=== PATIENT | male | born 2000 | race African-American/Black ===

== ENCOUNTER 2020-08-17 19:59 | Emergency (ER) | payer BC ==
[~2020-08-17] VITALS: Ht 177.8 cm; Wt 63.5 kg
[2020-08-17] MEDS ORDERED: AMPH20CA3 PO (20:20)
--- NOTE | 2020-08-17 21:00 | NUR ---
Dr. David at bedside for MSE.
[2020-08-17 21:21] LABS: BASOPHILS % (AUTO) 1.1 % (0.0-2.0); EOSINOPHILS % (AUTO) 1.2 % (0.0-7.0); HEMATOCRIT 42.2 % (36.7-47.1); HEMOGLOBIN 14.2 g/dL (12.5-16.3); LYMPHOCYTES # (AUTO) 1.6 K/uL (20.0-40.0); MEAN CORPUSCULAR HEMOGLOBIN 30.2 uug (23.8-33.4); MEAN CORPUSCULAR HGB CONC 34 g/dL (32.5-36.3); MONOCYTES # (AUTO) 0.3 K/uL (2.0-10.0); MONOCYTES % (AUTO) 7.7 % (0.0-11.0); PLATELET COUNT (AUTO) 268 K/uL (152-348); RED BLOOD CELL COUNT(AUTO) 4.69 MIL/uL (4.06-5.63)
[2020-08-17 21:29] LABS: CREATININE 1.1 mg/dL (0.6-1.3); POTASSIUM 4.4 mmol/L (3.5-5.1)
--- NOTE | 2020-08-17 21:30 | NUR ---
Pt out of ER for CT.
[2020-08-17 21:35] LABS: BILIRUBIN,DIRECT 0.1 mg/dL (0.0-0.2); BILIRUBIN,TOTAL 0.2 mg/dL (0.2-1.0); TOTAL PROTEIN, SERUM 7.2 g/dL (6.4-8.2)
--- NOTE | 2020-08-17 21:39 | NUR ---
Pt back to ER from CT.
--- NOTE | 2020-08-17 22:39 | NUR ---
Patient discharged to home in stable condition. Written and verbal after care instructions given. Patient verbalizes understanding of instructions. Stressed follow up or return to ER for worsening s/s. Patient out of ER with steady gait, no acute signs of distress, VSS, all belongings taken, provided with a copy of lab and CT results.
[2020-08-17 22:40] VITALS: BP 120/70
== END 2020-08-17 22:40 | disposition home or self-care (01) ==
LOC: ER 19:59
DX: K62.89 Other specified diseases of anus and rectum (principal); F90.9 Attention-deficit hyperactivity disorder, unspecified type; Z79.899 Other long term (current) drug therapy
CPT/HCPCS: 36415; 83690; 85025; 85730; A4663